=== PATIENT | female | born 1975 | race Caucasian/White ===

== ENCOUNTER 2024-01-12 11:35 | Outpatient (CLI) | payer BC, SELFPAY | END 2024-01-12 11:36 | disposition home or self-care (01) | LOC: NFLDREF 01-13 06:31 | PROVIDERS: PCP Family Medicine; Referring Provider Family Medicine; Visit Provider Nurse Practitioner Family | DX: N39.0 Urinary tract infection, site not specified (principal); B96.20 Unspecified Escherichia coli [E. coli] as the cause of diseases classified elsewhere | CPT/HCPCS: 87086; 87186 ==

== ENCOUNTER 2024-06-26 16:16 | Outpatient (CLI) | payer BC, SELFPAY | END 2024-06-26 16:17 | disposition home or self-care (01) | LOC: NFLDREF 06-29 04:06 | PROVIDERS: PCP Family Medicine; Referring Provider Family Medicine; Visit Provider Physician Assistant | DX: N39.0 Urinary tract infection, site not specified (principal); R31.9 Hematuria, unspecified | CPT/HCPCS: 87086 ==

== ENCOUNTER 2025-02-20 03:48 | Emergency (ER) | payer BC, SELFPAY ==
--- OUTSIDE RECORDS SUMMARY | 2012-01-31 02:30 | XMS_ITS | Continuity of Care Document ---
Author Organization [facility] Address [address] [address] [place] [address] Phone Care Team Providers Care Tooling Supervisor Name Role Phone Ba TABARES, Parmjit Espitia Unavailable Allergies, Adverse Reactions, Alerts Substance Reaction Status Criticality telithromycin Constipation Active No Information Sulfa (Sulfonamide Antibiotics) Hives Active No Information Medications Medication Instructions Dosage Effective Dates (start - stop) Status Comments Carafate 100 mg/mL Oral Susp take 10 milliliter (1G) by oral route every day on an empty stomach 1 hour before a meal 1 G - Active prednisone 5 mg/5 mL Oral Soln take 5 milliliter (5MG) by oral route 4 times every day 5 MG - Active Paxil 40 mg Tab take one tablet po qday. - Active BCP ( Control Pill) unknown Use as directed - Active lisinopril-hydroch lorothiazide 10 mg-12.5 mg Tab Use as directed - No Longer Active SUPER MINERAL Use as directed - No Longer Active Helen-D 12 Hour 60 mg-120 mg Tab Take one tablet by mouth every morning - No Longer Active Xanax 0.25 mg Tab as needed 8 - No Longer Active Vitamin C 250 mg Tab Take 1 tablet by mouth daily - No Longer Active Procedures Procedure Date Ugi Endo; W/bx mx Level Iv-surg Path Gross/micro 12 Advance Directives Directive Yes / No Effective Date File Name Resuscitation Not Answered N/A N/A Life Support Not Answered N/A N/A Intubation Not Answered N/A N/A Antibiotics Not Answered N/A N/A IV Fluid Support Not Answered N/A N/A Tube Feed Not Answered N/A N/A Other Directive N/A N/A WARNING:The information contained in this section is historical and is provided for information only and does not constitute a legal document or any assurance that the information is still accurate. Please verify the information with the marcus of the legal document before using it for clinical purposes. Encounters Encounter Description Practice Location Reason(s) For Visit Diagnoses Date Provider Providers Copied on Encounter [facility], [address] [address], [place], [place], [id number], tel:[phone] [facility] Dysphagia, UnspecifiedD ysphagia, Unspecified [address], [id number], [place]. tel:[phone] Referring Provider: Romaine CHAVIRA, [address] [facility] [place], [address]. tel:[phone] [facility], [address] [address], [place], [place], [id number], tel:[phone] [facility] Rectal Bleed/BRBPR 8 No Information Referring Provider: Romaine CHAVIRA, [address] [place], [address]. tel:[phone] Family History Family Member Type Diagnosis Age At Onset No Information Payers Payer name Insurance type Covered republican ID Taj colon(s) Will [id number] Social History Type Description Quantity Date Captured Comments Alcohol Use Details Unknown Caffeine Use Details Unknown Tobacco Use Status No Information Smoking Status No Information Sex Female Chief Complaint And Reason For Visit No Information Reason For Referral Reason For Referral No Information History Of Present Illness Encounter Date Complaint History Of Prese nt Illness No Information Functional Status Date Functional Assessmen t No Information Instructions Date Instruction Additional Infor mation No Information Assessments Type Assessment Date No Information Patient Care Teams Name Effective Dates (start - stop) Status Members No Information
--- OUTSIDE RECORDS SUMMARY | 2012-01-31 02:30 | XMS_ITS | Continuity of Care Document ---
Author Organization [facility] Address [address] [address] [place] [address] Phone Care Team Providers Care Water Treatment Plant Supervisor Name Role Phone Ba TABARES, Parmjit [...] Diagnoses Date Provider Providers Copied on Encounter [facility], [address] [address], [place], [place], [id number], tel:[phone] [facility] Dysphagia, UnspecifiedD ysphagia, Unspecified [address]. [address], [id number], [place]. tel:[phone] Referring Provider: Romaine CHAVIRA, [address] [facility] [place], [address]. tel:[phone] [facility], [address] [address], [place], [place], [address], tel:[phone] [facility] Rectal Bleed/BRBPR 8 No Information Referring Provider: Romaine CHAVIRA, [address] [place], [address]. tel:[phone] Family History Family Member Type Diagnosis Age At Onset No Information Payers Payer name Insurance type Covered constitution party ID Taj colon(s) Will [id number] Social History Type Description Quantity Date Captured [...]
--- OUTSIDE RECORDS SUMMARY | 2025-02-20 03:50 | XMS_ITS | Clinical Summary ---
Author Organization [facility] Address [address] [place] [address] Care Team Providers Care Radial Drill Operator For Plastic Name Role Phone Unavailable Primary Care Provider Unavailabl e Allergies Active Allergy Reactions Criticality Noted Date Comments Sulfa (Sulfonamide Antibiotics) Hives 07/2008 Medications DULoxetine (Cymbalta) [address] capsule Active lisinopril 20 mg tablet Take 20 mg by mouth in the morning. Active metFORMIN XR (Glucophage-XR) 500 mg 24 hr tablet TAKE 2 TABS BY MOUTH ONCE DAILY WITH EVENING MEAL Active metoprolol succinate XL (Toprol-XL) 50 mg 24 hr tablet Take 25 mg by mouth in the morning and 25 mg in the evening. 02/26/2024 Active Wegovy 1.7 mg/0.75 mL pen injector Inject 1.7 mg under the skin once a week. 03/19/2024 Active Active Problems Problem Noted Date Diagnosed Date Anxiety 04/25/2024 Class 3 severe obesity due t o excess calories without serious comorbidity with body mass index (BMI) of 45.0 to 49.9 in adult 12/27/2023 Paroxysmal SVT (supraventricular tachycardia) PVC (premature ventricular contraction) 12/27/19 NSVT (nonsustained ventricular tachycardia) 05/27 Bilateral pulmonary embolism 03/04/2018 Overview (04/25/2024): 11/2017. Immobilization from foot surgery and on an oral contraceptive pill. Recommended avoiding estrogen containing contraceptives. 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
--- OUTSIDE RECORDS SUMMARY | 2025-02-20 03:50 | XMS_ITS | Clinical Summary ---
Author Organization [facility] Address [address] [place] [address] Care Team Providers Care Performance Engineer Name Role Phone Brittany Benitez MD Primary Care Provider [phone] Allergies Active Allergy Reactions Criticality Noted Date Comments Unlisted Allergen (Include Detail In Comments) 04/29/2009 Seasonal allergies Sulfa (Sulfonamide Antibiotics) Hives 07/2008 Medications fluticasone (50 mcg per actuation) nasal solution (FLONASE)Indicat ions:Post-nasal drip,Acute non-recurrent maxillary sinusitis INHALE 2 SPRAYS INTO BOTH NOSTRILS ONCE DAILY. 48 mL 0 Active Cetirizine 10 mg cap Take by mouth. 0 1 Active clindamycin phos 1%-benzoyl perox 5% gelIndications:I nflammatory acne Apply topically to affected area(s) two times daily. 50 g 1 5 Active CPAPIndications: Obstructive sleep apnea RESMED CPAP (E0601) machine for home use at pressure: 5-15cmw, Choice of mask (A7030 or A7034) w/full face cushion (A7031) x1/mo, nasal cushion (A7032) x2/mo, or nasal pillows (A7033) x 2/mo; Length of Need: 99 months; Frequency of use: Daily 1 Each 5 Active semaglutide (weight loss) (Wegovy) 2.4 mg/0.75 mL subcutaneous penIndications:P rediabetes,PCOS (polycystic ovarian syndrome),Class 3 severe obesity due to excess calories without serious comorbidity with body mass index (BMI) of 45.0 to 49.9 in adult (HC),Essential hypertension Inject 2.4 mg subcutaneous once weekly. 9 mL 5 Active metFORMIN (GLUCOPHAGE XR) 500 mg Extended-Release tabletIndication s:Prediabetes,PC OS (polycystic ovarian syndrome) Take 1 Tablet (500 mg) by mouth two times daily with meals. 180 Tablet 1 5 Active lisinopriL (PRINIVIL; ZESTRIL) 10 mg tabletIndication s:Essential hypertension Take 1 Tablet (10 mg) by mouth once daily. 90 Tablet 1 5 Active Active Problems Problem Noted Date Diagnosed Date Endometrial hyperplasia 06/19/2024 Inflammatory acne 06/19/2024 Class 3 severe obesity due t o excess calories with serious comorbidity and body mass index (BMI) of 40.0 to 44.9 in adult 06/19/2024 Supraventricular tachycardia, unspecified 2024 Class 3 severe obesity due t o excess calories without serious comorbidity with body mass index (BMI) of 45.0 to 49.9 in adult 12/27/2023 Palpitations 12/27/2023 PVC (premature ventricular contraction) 12/27/19 Paroxysmal SVT (supraventricular tachycardia) NSVT (nonsustained ventricular tachycardia) 05/27 PCOS (polycystic ovarian syndrome) 03/04/2018 Bilateral pulmonary embolism 03/04/2018 Overview (03/04/2018): 11/2017. Immobilization from foot surgery and on an oral contraceptive pill. Recommended avoiding estrogen containing contraceptives. Prediabetes 10/25/2017 LAUREN 04/23/2007 AHI- 86 pillows standard 10/26/19 18 Morbid exogenous obesity 09/25/2017 Heel spur, right 09/25/2017 Essential hypertension 08/18/2013 Anxiety Resolved Problems Problem Noted Date Diagnosed Date Resolved Date Prediabetes 03/12/2016 Encounters Date Type Department Care Team Description 02/10/2025 9:30 AM CDT Ancillary Procedure [facility] [address] [place] [address] 02/10/2025 8:15 AM CDT Office Visit [facility] [address] [place] [address] Valarie Bashir PA Abdominal Pain (Hx of ovarian cysts; most recently 5 days ago. Gets cloudy urine prior to this and then after bursting gets hematuria. ) 02/10/2025 Travel 02/05/2025 Travel 01/28/2025 4:40 PM CDT Ancillary Procedure [facility] [address] [place] [address] 01/28/2025 Travel 01/23/2025 Travel 12/22/2024 3:40 PM CDT [place] [facility] [place] [address] [place] [address] Josh Novak MD Procedure (endometrial biopsy) 12/22/2024 Travel 12/17/2024 Travel 12/04/2024 8:45 AM CDT Office Visit [facility] [address] [place] [address] Brittany Benitez MD Medication Management 12/04/2024 Travel 11/29/2024 Travel from Last 3 Months Immunizations Immunization Administration Dates Next Due COVID-19 vaccine (Moderna 100mcg/0.5mL) PF, MDV 07/23/2020,06/25/2020 Influenza, IIV3 (Age >=3 years) 03/30/2008 Influenza, IIV4 03/30/2022,02/23/2020 Tdap 06/22/2022,06/30/2012 Family History Medical History Relation Name Comments Alcoholism Father Anxiety disorder Father Asthma Father Depression Father Emphysema Father Smoker Diabetes Mother Borderline Hypertension Mother Obesity Mother Osteoarthritis Mother Cancer-breast No Family History Cancer-colon No Family History Cancer-ovarian No Family History Relation Name Status Comments Father Alive Mother Alive Social History Tobacco Use Types Packs/Day Years Used Date Smoking Tobacco: Never Smokeless Tobacco: Never Tobacco Cessation:Counseling Given: Yes Alcohol Use Standard Drinks/Week Comments No 0 (1 standard drink = 0.6 oz pur e alcohol) PHQ-2 Answer Date Recorded PHQ-2 TOTAL SCORE 0 11/26/2023 Social Connections Answer Date Recorded Do you often feel lonely or isolated from those around you? 0 09/01/2024 Alcohol Use Answer Date Recorded How often do you have a drink containing alcohol ? 0 02/10/2025 How many drinks containing a lcohol do you have on a typical day when you are drinking? 0 02/10/2025 How often do you have five or more drinks on one occasion? 0 02/10/2025 Financial Resource Strain Answer Date R ecorded Difficulty of Paying Living Expenses 3 09/01/2024 Difficulty of Paying Living Expenses Not on file 09/01/2024 Food Insecurity Answer Date Recorded Do you worry your food will run out before you are able to buy more? 1 09/01/2024 Transportation Needs Answer Date Record ed Does lack of transportation keep you from medica l appointments? 1 09/01/2024 Does lack of transportation keep you from work, meetings or getting things that you need? 1 09/01/2024 Housing Stability Answer Date Recorded What is your housing situation today? 1 09/01/2024 Utilities Answer Date Recorded Do you have trouble paying f or utilities (for example, heat, electricity, water, phone)? 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 Not on file Not on file Obstetrics History Para Term AB IAB SAB Ectopic Multiple Livin g Live Births 2 2 1 1 1 2 3 Date Outcome GA Total Labor Labor/2nd/3rd Weight Sex Type Anes PTL Skylar A1 A5 Name Clin 001 29w 5d M C-Sec darlene Verma ll Comments:Twin , b ut twin did not survive Neona licha Demis e 004 Term 39w 0d M C-[employer] darlene Bales Comments Two sons, both doing well Last Filed Vital Signs Vital Sign Reading Time Taken Comments Blood Pressure 126/84 02/10/2025 8:15 AM CDT Pulse 66 02/10/2025 8:15 AM CDT Temperature 36.8 C (98.3 F) 07/23/2023 3:34 PM [employer] Respiratory Rate 16 07/23/2023 3:34 PM [employer] Oxygen Saturation 97% 12/22/2024 3:45 PM CDT Inhaled Oxygen Concentration - - Weight 128 kg (282 lb 3 oz) 02/10/2025 8:15 AM C DT Height 170.5 cm (5' 7.13) 11/19/2024 9:21 AM CD T Body Mass Index 44.03 11/19/2024 9:21 AM CDT Plan of Treatment Upcoming Encounters Date Type Department Care Team (Late st Contact Info) Description 03/09/2025 10:00 AM CDT Office Visit [facility] [address] [place] [address] Brittany Benitez MD [address] [place] [address] 06/22/2025 8:20 AM [employer] Office Visit [facility] [address] [place] [address] Brittany Benitez MD [address] [place] [address] Health Maintenance Due Date Last Done Comments Hepatitis B series for 19+ ( 1 of 3 - 19+ 3-dose series) 12/30/1994 Pneumococcal series for age 6-49 (1 of 2 - PCV) 12/30/1994 Depression screening for age 12+ 11/25/2024 11/26/2023, 06/25/2022, 06/22/2022, Additional history exists COVID-19 vaccine series (2024- season) 2025 03/28/2021, 07/23/2020, 06/25/2020 Influenza Vaccine (#1) 2025 2, 02/23/2020, 03/30/2008 Pap test for age 21-65 08/12/2025 1, 08/12/2020, 08/26/2017, Additional history exists BMI (ht and wt on same day) for age 18+ 11/19/2025 11/19/2024, 06/19/2024, 12/27/2023, Additional history exists Mammogram for age 45-75 01/28/2026 01/29/20 25, 01/29/2024, 01/24/2023, Additional history exists Lipids for age 45-75 06/19/2029 06/19/2024, 06/12/2023, 06/27/2022, Additional history exists Colonoscopy through age 75 11/18/203111/17, 11/17/2021, 11/17/2021 Tetanus booster 06/22/2032 06/22/2022, 03/0 05/2012, 06/30/2012 RSV vaccine for adults or (1 - 1-dose 75+ series) 12/30/2050 HIV for age 15-65 Completed 06/22/2022 Hepatitis C screening for ag e 18-79 Completed 06/22/2022 Procedures Procedure Name Priority Date/Time Associated Diagnosis Comments CT ABDOMEN PELVIS STONE PROTOCOL WO STAT 02/10/2025 9:13 AM CDT Gross hematuria Right flank pain URINALYSIS MICROSCOPIC Routine 02/10/2025 8:41 AM CDT Personal history of kidney stones Gross hematuria Right flank pain URINALYSIS MACROSCOPIC - [facility] ONLY POC DIP ([facility]) Routine 02/10/2025 8:41 AM CDT Personal history of kidney stones Gross hematuria Right flank pain XR MAMMO BILAT SCREENING Routine 01/28/2025 4:54 PM CDT Visit for screening mammogram PATH TISSUE EXAM Routine 12/22/2024 4:42 PM CDT PCOS (polycystic ovarian syndrome) BASIC METABOLIC PANEL Routine 12/04/2024 9:41 AM CDT Class 3 severe obesity due to excess calories with serious comorbidity and body mass index (BMI) of 40.0 to 44.9 in adult (HC) PCOS (polycystic ovarian syndrome) PVC (premature ventricular contraction) VITAMIN B12 Routine 12/04/2024 9:41 AM CDT PCOS (polycystic ovarian syndrome) PVC (premature ventricular contraction) URINALYSIS MACROSCOPIC - [facility] ONLY POC DIP ([facility]) Routine 12/04/2024 9:40 AM CDT Dysuria URINALYSIS MICROSCOPIC Routine 12/04/2024 9:37 AM CDT Dysuria URINE CULTURE Routine 12/04/2024 9:37 AM CDT Dysuria LIPID PANEL W REFLEX MEASURED LDL Routine 06/19/2024 8:37 AM [employer] Lipid screening LC HIV-1/O/2, 4TH GENERATION Routine 06/22/2022 10:25 AM [employer] Screening for HIV (human immunodeficiency virus) LC HCV ANTIBODY RFX TO QUANT PCR Routine 06/22/2022 10:25 AM [employer] Need for hepatitis C screening test COLONOSCOPY SCREENING Routine 11/17/2021 9:43 AM CDT Screening for colon cancer CLAIM INVESTIGATOR THIN PREP PAP SCREEN IMAGED Routine 08/12/2020 8:52 AM CDT Screening for cervical cancer from Last 3 Months or Most Recently Relevant to Health Maintenance Results * CT ABDOMEN PELVIS STONE PROTOCOL WO (02/10/2025 9:13 AM CDT) Anatomical Region Laterality Modality Abdomen, Pelvis, AORTA, LIVER, SPLEEN Computed Tomography 02/10/2025 9:32 AM CDT Impressions 02/10/2025 9:32 AM CDT 1. Intrarenal calculi on the right. Faint suggestion of a tiny calculus at the right ureteropelvic junction in the 1-2 millimeter range. No other potential visible cause for right flank pain or hematuria on this exam. 2. Probably benign rim calcified left renal mass stable since 2019. 3. Left adrenal nodule, likely a lipid rich benign adenoma. 4. Other incidental nonacute findings as above. Please review the comments. Please note that all CT scans at this facility use dose modulation, iterative reconstruction, and/or weight-based dosing when appropriate to reduce radiation dose to as low as reasonably achievable. Dictated by Ben Rios MD @ 02/10/2025 9:32:04 AM (Electronically Signed) Narrative 02/10/2025 9:32 AM CDT For Patients: As a result of the Cures Act, medical imaging exams and procedure reports are released immediately into your electronic medical record. You may view this report before your referring provider. If you have questions, please contact your health care provider. INDICATION: Gross hematuria. Right flank pain. Kidney stones suspected COMPARISON: December 30, 2019 TECHNIQUE: CT examination of the abdomen and pelvis was performed without intravenous contrast. Thin section axial images were obtained from the lung bases through the pubic symphysis. Oral contrast was not administered. Please note that all CT scans at this facility use dose modulation, iterative reconstruction, and/or weight-based dosing when appropriate to reduce radiation dose to as low as reasonably achievable. FINDINGS: LUNG BASES: Linear opacities consistent with atelectasis or scarring.Small hiatal hernia. The heart size is normal the lung bases. LIVER/BILIARY SYSTEM:The liver is normal in size and configuration given the lack of intravenous contrast. There is no visible focal mass and there is no intra- or extra hepatic biliary ductal dilatation.There has been a cholecystectomy ADRENALS: Normal right adrenal gland. Low-density left adrenal nodule measuring 1.7 centimeters consistent with a benign adenoma KIDNEYS, URETERS and BLADDER:The left kidney shows a rim calcified left upper pole lesion measuring 2.5 centimeters in diameter. This is unchanged since 2020 and therefore benign. No definite obstructive uropathy on the left. There are calculi in the right renal pelvis. There is a faint suggestion of a tiny stone at the right ureteropelvic junction measuring about 1-2 millimeters. This is most convincingly seen on coronal image 97 and axial image number 123 no distal calculi or calculi within the bladder. SPLEEN:Normal non-contrast appearance. PANCREAS: Normal non-contrast appearance. RETROPERITONEUM and MESENTERY: There is no mass, adenopathy or aortic aneurysm. GASTROINTESTINAL SYSTEM: There is no evidence of diverticulitis, colitis, mechanical obstruction, or appendicitis. The small bowel as visualized appears normal.Diverticulosis PELVIS: No mass, adenopathy or free fluid. OSSEOUS STRUCTURES and ABDOMINAL WALL: There is an age-appropriate appearance of the osseous structures.No significant abdominal wall defect. OTHER: No free fluid or free air. Procedure Note Ben Rios MD - 02/10/2025 For Patients: As a result of the Century Cures Act, medical imagingexams and procedure reports are released immediately into your electronicmedical record. You may view this report before your referring provider.If you have questions, please contact your health care provider. INDICATION: Gross hematuria. Right flank pain. Kidney stones suspected COMPARISON: December 30, 2019 TECHNIQUE: CT examination of the abdomen and pelvis was performed without intravenouscontrast. Thin section axial images were obtained from the lung basesthrough the pubic symphysis. Oral contrast was not administered. Please note that all CT scans at this facility use dose modulation,iterative reconstruction, and/or weight-based dosing when appropriate toreduce radiation dose to as low as reasonably achievable. FINDINGS: LUNG BASES: Linear opacities consistent with atelectasis or scarring.Smallhiatal hernia. The heart size is normal the lung bases. LIVER/BILIARY SYSTEM:The liver is normal in size and configuration giventhe lack of intravenous contrast. There is no visible focal mass and thereis no intra- or extra hepatic biliary ductal dilatation.There has been acholecystectomy ADRENALS: Normal right adrenal gland. Low-density left adrenal nodulemeasuring 1.7 centimeters consistent with a benign adenoma KIDNEYS, URETERS and BLADDER:The left kidney shows a rim calcified leftupper pole lesion measuring 2.5 centimeters in diameter. This is unchangedsin2019 and therefore benign. No definite obstructive uropathy on theleft. There are calculi in the right renal pelvis. There is a faintsuggestion of a tiny stone at the right ureteropelvic junction measuringabout 1-2 millimeters. This is most convincingly seen on coronal image 97and axial image number 123 no distal calculi or calculi within thebladder. SPLEEN:Normal non-contrast appearance. PANCREAS: Normal non-contrast appearance. RETROPERITONEUM and MESENTERY: There is no mass, adenopathy or aorticaneurysm. GASTROINTESTINAL SYSTEM: There is no evidence of diverticulitis, colitis,mechanical obstruction, or appendicitis. The small bowel as visualizedappears normal.Diverticulosis PELVIS: No mass, adenopathy or free fluid. OSSEOUS STRUCTURES and ABDOMINAL WALL: There is an age-appropriateappearance of the osseous structures.No significant abdominal walldefect. OTHER: No free fluid or free air. IMPRESSION: 1. Intrarenal calculi on the right. Faint suggestion of a tiny calculus atthe right ureteropelvic junction in the 1-2 millimeter range. No otherpotential visible cause for right flank pain or hematuria on this exam. 2. Probably benign rim calcified left renal mass stable since 2019. 3. Left adrenal nodule, likely a lipid rich benign adenoma. 4. Other incidental nonacute findings as above. Please review thecomments. Please note that all CT scans at this facility use dose modulation,iterative reconstruction, and/or weight-based dosing when appropriate toreduce radiation dose to as low as reasonably achievable. Dictated by Ben Rios MD @ 02/10/2025 9:32:04 AM (Electronically Signed) us Valarie [place] CT Final Res ult * (ABNORMAL) POCT Urinalysis Dipstick Only [[id number]] (02/10/2025 8:41 AM CDT) Only the most recent of2 resultswithin the time period is included. SPECIFIC GRAVITY 1.025 1.001 - 1.035 02/10/2025 8:48 AM CDT [facility] PROTEIN NEGATIVE NEGATIVE 02/10/2025 8:48 AM CDT [facility] GLUCOSE NEGATIVE NEGATIVE 02/10/2025 8:48 AM CDT [facility] KETONES NEGATIVE NEGATIVE 02/10/2025 8:48 AM CDT [facility] BILIRUBIN NEGATIVE NEGATIVE 02/10/2025 8:48 AM CDT [facility] OCCULT BLOOD 2+(A) NEGATIVE 02/10/2025 8:48 AM CDT [facility] NITRITE NEGATIVE NEGATIVE 02/10/2025 8:48 AM CDT [facility] PH 7.0 5.0 - 8.0 02/10/2025 8:48 AM CDT [facility] LEUKOCYTE ESTERASE NEGATIVE NEGATIVE 02/10/2025 8:48 AM CDT [facility] Urine URINE SPECIMEN / Unknown Non-Blood / Unknown 02/10/2025 8:41 AM CDT 02/10/2025 8:41 AM CDT Valarie Bashir PA URINE Final Res ult [facility] [address] [place] [address], [place] [phone] [address], [place] [phone] * (ABNORMAL) URINALYSIS MICROSCOPIC [14288.1] - routine (02/10/2025 8:41 AM CDT) Only the most recent of2 resultswithin the time period is included. RBC 11-25(A) 0-2, None Seen /HPF 02/10/2025 4:42 PM CDT [facility] WBC 6-10(A) 0-2, 3-5, None Seen /HPF 02/10/2025 4:42 PM CDT [facility] BACTERIA Moderate(A ) None Seen, Rare, Few Bacteria/ HPF 02/10/2025 4:42 PM CDT [facility] EPITHELIAL CELLS Many(A) None Seen, Few Epi/HPF 02/10/2025 4:42 PM CDT [facility] HYALINE CASTS 0-2 0-2, 3-5 /LPF 02/10/2025 4:42 PM CDT [facility] Urine URINE SPECIMEN / Unknown Non-Blood / Unknown 02/10/2025 8:41 AM CDT 02/10/2025 8:41 AM CDT Valarie Bashir PA URINE Final Res ult [facility] [address] [place] [address], [place] * XR MAMMO BILAT SCREENING (01/28/2025 4:54 PM CDT) Anatomical Region Laterality Modality BREASTS, Breast Left, Breast Right Bilateral Mammography Impressions 01/29/2025 2:17 PM CDT There is no radiographic evidence for malignancy. Recommend annual mammograms. MAMMOGRAM ASSESSMENT: ACR 1 Negative PATIENTS: You will also receive a letter with your examination results in an easy to read format. If you have questions about your results, please contact your referring provider. Narrative 01/29/2025 2:17 PM CDT For Patients: As a result of the Century Cures Act, medical imaging exams and procedure reports are released immediately into your electronic medical record. You may view this report before your referring provider. If you have questions, please contact your health care provider. XR MAMMO BILAT SCREENING [[id number]] CLINICAL HISTORY: This is an asymptomatic 49 y.o. patient. INDICATION FOR EXAM: Mammogram Screening. TECHNIQUE: CC and MLO views were obtained. This study was evaluated with the assistance of Computer-Aided Detection. COMPARISON FILM: Yes [facility] FINDINGS: The breasts are almost entirely fatty. There are no dominant masses, suspicious micro calcifications or areas of architectural distortion. Brittany Benitez MD MAMMO Final Resul t * PATH TISSUE EXAM (12/22/2024 4:42 PM CDT) Case Report Pathology Report Case: [id number] Authorizing Provider: Josh Novak MD Collected: 12/22/2024 1642 Ordering Location: [facility] Received: 12/22/2024 1642 Clinic Pathologist: Elida Granados MD Specimen: Endometrial Biopsy 12/25/2024 12:19 PM CDT [facility] Final Diagnosis A) ENDOMETRIUM, BIOPSY: 1. Secretory endometrium 2. Negative for chronic endometritis 3. Negative for hyperplasia, atypia, and malignancy 12/25/2024 12:19 PM CDT [facility] at 1219 CDT Clinical Information Endometrial biopsies for surveillance due to increased risk (obesity, PCOS, thickened endometrial lining on imaging). Does not tolerate hormonal suppression. 12/25/2024 12:19 PM CDT [facility] Gross Description A) Received in formalin, labeled with the patient's name and date of , is a 2 x 1.2 x 0.2 cm aggregate of davenport/pink mucosa. The specimen is entirely submitted in 1 cassette. [facility] 12/24/2024 12/25/2024 12:19 PM CDT [facility] Microscopic Description The final diagnosis is based on microscopic examination of appropriate sections of all specimens. 12/25/2024 12:19 PM CDT [facility] Additional Information Interpreted at [facility] - [address] [place] [address] 12/25/2024 12:19 PM CDT [facility] Other (Endometrial Biopsy) Non-Blood / Unknown 12/22/2024 4:42 PM CDT 12/22/2024 4:42 PM CDT us Josh Novak MD PATHOLOGY/CYTOLOGY Final Resul t [facility] [address] [place] [address], * VITAMIN B12 (12/04/2024 9:41 AM CDT) VITAMIN B12 439 200 - 1,100 pg/mL [facility] Blood BLOOD SPECIMEN / Unknown 12/04/2024 9:41 AM CDT 12/04/2024 9:41 AM CDT us Brittany Benitez MD CHEMISTRY Final Resul t [employer] [facility] [address] [place] [address], [place] [phone] [facility] [address] [place] [address] * BASIC METABOLIC PANEL (12/04/2024 9:41 AM CDT) GLUCOSE 87 65 - 99 mg/dL [facility] Comment: Fasting reference interval UREA NITROGEN (BUN) 18 7 - 25 mg/dL [facility] CREATININE 0.79 0.50 - 0.99 mg/dL [facility] EGFR 92 > OR = 60 mL/min/1. 73m2 [facility] BUN/CREATININE RATIO SEE NOTE: 6 - 22 (calc) [facility] Comment: Not Reported: BUN and Creatinine are within reference range. SODIUM 137 135 - 146 mmol/L [facility] POTASSIUM 4.8 3.5 - 5.3 mmol/L [facility] CHLORIDE 104 98 - 110 mmol/L [facility] CARBON DIOXIDE 26 20 - 32 mmol/L [facility] ELECTROLYTE BALANCE 7 7 - 17 mmol/L (calc) [facility] CALCIUM 9.1 8.6 - 10.2 mg/dL [facility] Blood BLOOD SPECIMEN / Unknown 12/04/2024 9:41 AM CDT 12/04/2024 9:41 AM CDT Brittany Benitez MD CHEMISTRY Final Resul t [employer] [place] [id number] [place] [address], [facility] [address] [place] [address] * URINE CULTURE [16608.2] (12/04/2024 9:37 AM CDT) CULTURE <10,000 CFU/mL multiple organisms 12/05/2024 5:16 PM CDT [facility] Urine URINE SPECIMEN / Unknown Non-Blood / Unknown 12/04/2024 9:37 AM CDT 12/04/2024 9:37 AM CDT us Brittany Benitez MD MICROBIOLOGY Final Resul t [facility] [address] [place], [place] [id number], * (ABNORMAL) LIPID PANEL W REFLEX MEASURED LDL (06/19/2024 8:37 AM CONTR[employer]RE) CHOLESTEROL, TOTAL 191 <200 mg/dL [facility] HDL CHOLESTEROL 40(L) > OR = 50 mg/dL [facility] TRIGLYCERIDES 213(H) <150 mg/dL [facility] Comment: If a non-fasting specimen was collected, consider repeat triglyceride testing on a fasting specimen if clinically indicated. Filomena et al. J. of Clin. Lipidol. 2015;9:129-169. LDL-CHOLESTEROL 118(H) mg/dL (calc) [facility] Comment: Reference range: <100 Desirable range <100 mg/dL for primary prevention; <70 mg/dL for patients with CHD or diabetic patients with > or = 2 CHD risk factors. LDL-C is now calculated using the Jordi-Jean-Baptiste calculation, which is a validated novel method providing better accuracy than the Friedewald equation in the estimation of LDL-C. Jordi SS et al. KIMMIE. 2013;310(19): 6790-5819 (http://education.Re[employer]idal/faq/TYF045) CHOL/HDLC RATIO 4.8 <5.0 (calc) [facility] NON HDL CHOLESTEROL 151(H) <130 mg/dL (calc) [facility] Comment: For patients with diabetes plus 1 major ASCVD risk factor, treating to a non-HDL-C goal of <100 mg/dL (LDL-C of <70 mg/dL) is considered a therapeutic option. Blood BLOOD SPECIMEN / Unknown 06/19/2024 8:37 AM [employer] 06/19/2024 8:38 AM [employer] us Brittany Benitez MD CHEMISTRY Final Resul t [facility] [employer] [address] [place] [address], [facility] [address] [place] [address] * LC HCV ANTIBODY RFX TO QUANT PCR (06/22/2022 10:25 AM [employer]) [facility] HCV Ab <0.1 0.0 - 0.9 s/co ratio 06/26/2022 10:06 PM CONTROLLER CO[employer] OR ORE [facility] ([facility]) Blood BLOOD SPECIMEN / Unknown Venipuncture / Unknown 06/22/2022 10:25 AM [employer] 06/22/2022 10:30 AM [employer] Narrative [facility] ([facility]) - 06/26/2022 10:06 PM [employer] Performed at: [address] [place] [id number] Relations Manager: Taco Hood MD, Phone: [phone] us Brittany Benitez MD LABORATORY Final Resul t [facility] ([facility]) [address] [place] [id number], * LC HIV-1/O/2, 4TH GENERATION (06/22/2022 10:25 AM [employer] O[employer]) [facility] HIV Scr 4th Gen Non Reactive Non Reactive 06/26/2022 10:[address] [facility] ([facility]) Comment: HIV Negative HIV-1/HIV-2 antibodies and HIV-1 p24 antigen were NOT detected. There is no laboratory evidence of HIV infection. Blood BLOOD SPECIMEN / Unknown Venipuncture / Unknown 06/22/2022 10:25 AM [employer] 06/22/2022 10:30 AM [employer] Narrative [facility] ([facility]) - 06/26/2022 10:06 PM [employer] Performed at: [address] [place] [address] [id number] Relations Manager: Taco Hood MD, Phone: [phone] us Brittany Benitez MD LABORATORY Final Resul t [facility] ([facility]) [address] [place] [address], * COLONOSCOPY (11/17/2021 9:57 AM CDT) 11/17/2021 9:57 AM CDT Narrative Transcriptions Jordi Leger MD - 11/17/2021 10:55 AM CDT Patient Name: Lisa Kate Procedure Date: 11/17/2021 Gender: Female Date of : 1975 Admit Type: Outpatient Procedure: Colonoscopy Proceduralist: Jordi Leger MD , Amira Fortune, RN (Nurse) Referring MD: Brittany Benitez Indications/Pre-Op Diagnosis: Screening for colorectal malignant neoplasm, This is the patient's first colonoscopy Medications: Fentanyl 100 micrograms IV, Midazolam 3 mgIV, The level of sedation administered wasmoderate Procedure Description: The patient had risks, benefits and alternatives explained to andgave informed consent. The patient had a stable cardiopulmonary status and judged an adequate candidate for conscious sedation. The Colonoscope was passed through the anus and advanced to thececum, identified by appendiceal orifice and ileocecal valve. Thecolonoscopy was performed without difficulty. The patient tolerated the procedure well. The quality of the bowel preparation was good. The ileocecal valve, appendiceal orifice, and rectum were photographed. Complications: No immediate complications. Estimated Blood Loss & Specimen: Estimated blood loss: none. Specimen collected - None Findings: The perianal and digital rectal examinations were normal. The entire examined colon appeared normal. Impressions/Post-Op Diagnosis: - The entire examined colon is normal. - No specimens collected. Recommendation: - Patient has a contact number available for emergencies. The signsand symptoms of potential delayed complications were discussed with the patient. Return to normal activities tomorrow. Written discharge instructions were provided to the patient. - Resume previous diet. - Continue present medications. - Repeat colonoscopy in 10 years for screening purposes. Moderate Sedation: Moderate (conscious) sedation was administered by the endoscopy nurse and supervised by the endoscopist. The following parameters were monitored: oxygen saturation, heart rate, respiratory rate, blood pressure, adequacy of pulmonary ventilation and reponse to care. Please refer to the patient's medical record flowsheets and nursing notes for moderate sedation details. Total physician intraservice time was 20 minutes. Jordi Leger MD 11/17/2021 10:55:44 AM This report has been signed electronically. Note Initiated On: 11/17/2021 9:57 AM Procedure Code(s): --- Professional --- 29303, Colonoscopy, flexible; diagnostic, including collection of specimen(s) bybrushing or washing, when performed (separateprocedure) Diagnosis Code(s): --- Professional --- Z12.11, Encounter for screening formalignant neoplasm of colon CPT copyright 2020 [employer]. All rights reserved. The codes documented in this report are preliminary and upon ordering machine operator reviewmay be revised to meet current compliance requirements. Scope In: 10:32:49 AM Scope Withdrawal Time 0 hours 8 minutes 0 seconds Scope Out: 10:49:02 AM us Jordi Leger MD PROCEDURE ORD Final Res ult * CLAIM INVESTIGATOR THIN PREP PAP SCREEN IMAGED [[id number]] (08/12/2020 8:52 AM CDT) Case Report Gynecologic Cytology Report Case: [id number] Authorizing Provider: Brittany Benitez MD Collected: 08/12/2020 0852 Ordering Location: [facility] Received: 08/12/2020 0911 Clinic First Screen: Soy Dickson Rescreen: Roshni Ramirez Specimen: CLAIM INVESTIGATOR ThinPrep Vial Screening, Cervical 08/24/2020 11:36 AM CDT [facility] INTERPRETATION/ RESULT NEGATIVE FOR INTRAEPITHELIAL LESION OR MALIGNANCY (NIL) (none) 08/24/2020 11:36 AM CDT [facility] at 1136 CDT ORGANISM(S) Shift in johnathon suggestive of bacterial vaginosis 08/24/2020 11:36 AM CDT [facility] SPECIMEN ADEQUACY Satisfactory for evaluation Endocervical component present 08/24/2020 11:36 AM CDT [facility] HPV REQUEST HPV and PAP 08/24/2020 11:36 AM CDT [facility] Date of LMP 08/08/2020 08/24/2020 11:36 AM CDT [facility] Last Pap Date 08/26/17 08/24/2020 11:36 AM CDT [facility] Last Pap Result NIL 11:36 AM CDT [facility] Abnormal Pap or Palisade Bx in last 5 years No 08/24/2020 11:36 AM CDT [facility] Menstrual Status Abnormal bleeding 08/24/2020 11:36 AM CDT [facility] Palisade Bx Done Today No 08/24/2020 11:36 AM CDT [facility] Additional Information None given 08/24/2020 11:36 AM CDT [facility] Comment: Cytology is screened at [facility], Central Laboratory - [address], [place] [address] and [facility] - [address], [place] [address] and [facility] - [address] [place] [address] Interpreted at [facility] - [address], [place] [address] Automated Review Successful 08/24/2020 11:36 AM CDT [facility] Comment:Specimen processed s uccessfully by automated supervisor road administrator device, ThinPrep Imaging System, [employer] ANCILLARY TESTING CLAIM INVESTIGATOR HPV Ordered, Please see separate report 08/24/2020 11:36 AM CDT [facility] Note The pap test is a screening technique, not a diagnostic procedure. It is used primarily to screen for squamous cancers and precursor lesions. Published studies have shown that it is subject to both false negative and false positive results. The pap test should not be used as the sole means to diagnose or exclude pre-malignant and malignant lesions. 08/24/2020 11:36 AM CDT [facility] Other (Cervical) Non-Blood / Unknown 08/12/2020 8:52 AM CDT 08/12/2020 9:11 AM CDT us Brittany Benitez MD PATHOLOGY/CYTOLOGY Final Re sult [facility] [address] [place] [address], [place] from Last 3 Months or Most Recently Relevant to Health Maintenance Insurance [employer] Care Teams Performance Engineer Relationship Specialty Start Date End Date Brittany Benitez MD [address] [place] [address] PCP - General 02/15/21
[2025-02-20 04:10] VITALS: BP 144/84; PULSE 76; RESP 20; TEMP 36.2; O2SAT 98; BMI 42.9
--- NOTE | 2025-02-20 04:47 | ED.FEMALEGU ---
HPI - Female Genitourinary General Time Seen by Provider: 04:47 Date Seen: 02/20/25 Chief complaint: Urogenital Problems, Female Stated complaint: kidney stone Time Seen by Provider: 02/20/25 04:47 Source: patient Mode of arrival: ambulatory History of Present Illness HPI Narrative: Lisa is a 49-year-old female who presents the emergency department for evaluation of kidney stone. Patient complains of right-sided kidney stone that was diagnosed on CT scan approximately 1 and half weeks ago. Patient states that this morning around 1:30 a.m. she developed severe pain in her right flank, right side, going down into her right lower abdomen/groin region. Patient describes the pain as a constant sharp pain worse she was unable to get comfortable 4. Patient reports pain was associated with nausea but denies any fever, chills, vomiting. Patient took ibuprofen around 1:30 a.m.. Patient denies any dysuria, hematuria, no other complaints. Per chart review patient was seen on 02/10/2025. At that time she did have a CT scan which demonstrates an intrarenal calculi on the right, tiny calculus at the right UPJ 1-2 mm range. Related Data Home Medications ?Medication ?Instructions ?Recorded ?Confirmed clindamycin 1 %-benzoyl peroxide 5 1 applic topical QAM 01/12/24 02/20/25 % topical gel metformin 500 mg tablet,extended 500 mg PO BID 01/12/24 02/20/25 release 24 hr duloxetine 20 mg capsule,delayed 60 mg PO DAILY 06/26/24 02/20/25 release lisinopril 10 mg tablet mg PO DAILY 06/26/24 06/26/24 semaglutide (weight loss) 1.7 2.4 mg subcut 06/26/24 06/26/24 mg/0.75 mL subcutaneous pen injector (Wegovy) lorazepam 0.5 mg tablet 0.5 mg PO DAILY PRN 02/20/25 02/20/25 Previous Rx's ?Medication ?Instructions ?Recorded cephalexin 500 mg capsule 500 mg PO TID #21 caps 06/26/24 ondansetron 4 mg disintegrating 4 mg PO Q8H PRN nausea and 02/20/25 tablet vomiting #14 tabs Allergies Allergy/AdvReac Type Severity Reaction Status Date / Time Sulfa (Sulfonamide Allergy Intermediate Hives Verified 02/20/25 04:25 Antibiotics) Review of Systems Narrative: Past medical history, past surgical history, medications, allergies, family history, and social history were reviewed with the patient. No additional pertinent items. A medically appropriate review of systems was performed with pertinent positives and negatives noted in HPI, all other systems negative. PFSH PFS Social History Smoking Status: Never smoker Do you use any of these nicotine containing products: None How often do you have a drink containing alcohol: never How often do you have six or more drinks on one occasion: Never AUDIT-C Alcohol total score: 0 Non-prescribed substance use: denies use service: No Exam Narrative: Exam Narrative: General: Afebrile, in distress secondary to pain HEENT: Normocephalic, atraumatic, conjunctiva normal. MMM Neck: non-tender, supple Cardio: regular rate. regular rhythm Resp: Normal work of breathing, no respiratory distress, lungs clear bilaterally, no wheezing, rhonchi, rales Chest/Back: no visual signs of trauma, no midline tenderness,+ right CVA tenderness Abdomen: soft, non distension, no tenderness, no peritoneal signs Neuro: alert and fully oriented. CN II-XII grossly intact. Grossly normal strength and sensation in all extremities. MSK: no deformities. Normal range of motion Integumentary/Skin: no rash visualized, normal color Psych: normal affect, normal behavior Const: Vital Signs, click to edit/add: Vital Signs - 24 hr 02/20/25 04:10 02/20/25 07:02 Temperature 97.1 F L 99 F Pulse Rate [Right Pulse Oximeter] 76 74 Respiratory Rate 20 16 Blood Pressure [Ri ght Upper Arm] 144/84 H 124/76 Pulse Oximetry 98 98 Oxygen Delivery Me thod Room Air Room Air Course Vital Signs Vital signs: Initial Vital Signs Temperature 97.1 F L 02/20/25 04:10 Temperature Source Temporal Artery Scan 02/20/25 04:10 Pulse Rate 76 02/20/25 04:10 Pulse Rhythm Regular 02/20/25 04:10 Respiratory Rate 20 02/20/25 04:10 Blood Pressure 144/84 H 02/20/25 04:10 Blood Pressure Mean 104 02/20/25 04:10 Blood Pressure Position Sitting 02/20/25 04:10 Pulse Oximetry 98 02/20/25 04:10 Oxygen Delivery Method Room Air 02/20/25 04:10 Vital Signs Temperature 97.1 F L 02/20/25 04:10 Pulse Rate 76 02/20/25 04:10 Respiratory Rate 20 02/20/25 04:10 Blood Pressure 144/84 H 02/20/25 04:10 Pulse Oximetry 98 02/20/25 04:10 Oxygen Delivery Method Room Air 02/20/25 04:10 Temperature 99 F 02/20/25 07:02 Pulse Rate 74 02/20/25 07:02 Respiratory Rate 16 02/20/25 07:02 Blood Pressure 124/76 02/20/25 07:02 Pulse Oximetry 98 02/20/25 07:02 Oxygen Delivery Method Room Air 02/20/25 07:02 Medications Administered Medications: Discontinued Medications Generic Name Dose Route Start Last Admin Trade Name Mauq PRN Reason Stop Dose Admin Acetaminophen 1,000 mg 02/20/25 05:22 02/20/25 05:25 Acetaminophen 500 Mg Tablet PO 02/20/25 05:23 1,000 mg ONCE ONE Administration Ondansetron HCl 4 mg 02/20/25 05:22 02/20/25 05:25 Ondansetron 2 Mg/Ml Inj IVP 02/20/25 05:23 4 mg ONCE ONE Administration MDM - Female Genitourinary MDM Narrative Medical decision making narrative: Lisa is a 49-year-old female who presents the emergency department for evaluation of kidney stone. Upon arrival patient is nontoxic appearing, afebrile, in distress secondary to pain. Patient hemodynamically stable, slightly hypertensive but otherwise vital signs within normal limits. Given patient's recent CT imaging, known kidney stones now with worsening right flank pain, suspect likely nephrolithiasis/ureterolithiasis. At this time patient does report some improved worse pain. Patient was treated with Tylenol, Zofran, currently declined anything stronger for pain. Comprehensive labs unremarkable with no leukocytosis, no acute metabolic electrolyte abnormalities, urinalysis with blood, 50-100 red blood cells, no evidence of acute infection. I reviewed patient's recent outpatient imaging on 02/10/2025. I discussed results with patient at this time considered repeat CT imaging however patient's symptoms are improved, patient is feeling better, no evidence of infection, normal kidney function. At this time with shared decision making the decision was made to hold off on imaging at this time and will treat with supportive care pain management. Patient feels comfortable discharge with continued supportive care, Zofran, Tylenol, ibuprofen, close outpatient follow-up. Strict return precautions discussed. Patient understands and agrees to the plan. Medical Records Attestation: I reviewed the patient's medical records. Lab Data Attestation: I reviewed the patient's lab results. Labs: Lab Results 02/20/25 02/20/25 Range/Units 00:43 06:25 WBC 7.87 (4.50-11.00) K/uL RBC 4.80 (4.00-5.20) m/uL Hgb 13.7 (12.0-16.0) gm/dL Hct 42.4 (33.0-51.0) % MCV 88 (80-100) fL MCH 29 (26-34) pg MCHC 32 (32-36) gm/dL RDW Coeff of Blanca 13.2 (11.5-15.5) % Plt Count 317 (140-440) K/uL Neut % (Auto) 67.6 (42.0-72.0) % Lymph % (Auto) 21.0 (20-44) % Sherman % (Auto) 7.5 (0.0-11.0) % Eos % (Auto) 3.4 (0.0-7.0) % Baso % (Auto) 0.4 (0.0-3.0) % Neut # (Auto) 5.32 (1.7-7.0) K/uL Lymph # (Auto) 1.65 (0.90-2.90) K/uL Sherman # (Auto) 0.60 (0.00-0.90) K/UL Eos # (Auto) 0.27 (0.00-0.50) K/uL Baso # (Auto) 0.03 (0.00-0.30) K/uL Abs Immat Gran (auto) 0.01 (0.00-0.30) K/uL Imm/Tot Granulo (auto) 0.1 % Sodium 140 (135-149) mmol/L Potassium 4.2 (3.6-5.1) mmol/L Chloride 104 (96-114) mmol/L Carbon Dioxide 28 (20-32) mmol/L Anion Gap 8 (7-15) mEq/L BUN 24 (5-24) mg/dL Creatinine 1.1 (0.5-1.5) mg/dL Estimated Creat Clear 60.16 Estimated GFR 62 ml/min Glucose 116 H (60-115) mg/dL Calcium 9.6 (8.4-10.6) mg/dL Total Bilirubin 0.5 (0.1-1.5) mg/dL AST 29 (12-35) U/L ALT 21 (4-35) U/L Alkaline Phosphatase 73 (40-150) U/L Total Protein 7.5 (6.0-8.3) g/dL Albumin 4.2 (3.3-5.0) g/dL Urine Color Dark yellow (Yellow) Urine Appearance Slightly Cloudy A (Clear) Urine pH 5.5 (5.0-8.5) Ur Specific [place] >= 1.030 (1.000-1.030) Urine Protein Trace A (Negative) Urine Glucose (UA) Negative (Negative) Urine Ketones Negative (Negative) Urine Blood 3+ A (Negative) Urine Nitrite Negative (Negative) Urine Bilirubin Negative (Negative) Urine Urobilinogen 0.2 (0.2-1.0) Ur Leukocyte Esterase Negative (Negative) Urine RBC 50-100 A (0-2) Urine WBC 2-5 (0-5) Ur Squamous Epith Cells Few (None-Few) Urine Bacteria Few A (None) Discharge Plan Discharge Clinical Impression: Flank pain, Kidney stone Patient Disposition: Home, Self-Care Condition: Stable Instructions: Kidney Stones (ED) Additional Instructions: Please follow-up with your primary care provider in the next 5-7 days for further evaluation and follow-up. Please call to schedule appointment. Please rest, drink plenty of fluids. Please alternate taking Tylenol 1000 mg and ibuprofen 600 mg every 6 hours as needed for pain. Please take Zofran as needed for nausea. Please return to the emergency department if you develop high fever, severe pain, persistent vomiting, worsening symptoms. It was a pleasure taking care of you today. We hope you feel better soon. Prescriptions: New ondansetron 4 mg tablet,disintegrating 4 mg PO Q8H PRN (Reason: nausea and vomiting) Qty: 14 0RF No Action metformin 500 mg tablet extended release 24 hr 500 mg PO BID clindamycin-benzoyl peroxide 1-5 % gel 1 applic topical QAM lisinopril 10 mg tablet PO DAILY duloxetine 20 mg capsule,delayed release(DR/EC) 60 mg PO DAILY Wegovy 1.7 mg/0.75 mL pen injector 2.4 mg subcut cephalexin 500 mg capsule 500 mg PO TID Qty: 21 0RF lorazepam 0.5 mg tablet 0.5 mg PO DAILY PRN Follow Up/Referrals: Brittany Benitez MD [Primary Care Provider, Family Practice] Stand Alone Forms: [employer]formerly [employer]th Info Instructions
[2025-02-20 04:49] LABS: Hematocrit* 42.4 % (33.0-51.0); Hemoglobin* 13.7 gm/dL (12.0-16.0); Immature Granulocytes Abs Auto 0.01 K/uL (0.00-0.30); Immature Granulocytes Pct Auto 0.1 %; Lymphocytes Absolute Auto 1.65 K/uL (0.90-2.90); Mean Corpuscular HGB Conc 32 gm/dL (32-36); Mean Corpuscular Hemoglobin 29 pg (26-34); Mean Corpuscular Volume 88 fL (80-100); RDW Coefficient of Variation % 13.2 % (11.5-15.5); Red Blood Count* 4.80 m/uL (4.00-5.20); White Blood Count* 7.87 K/uL (4.50-11.00)
[2025-02-20 04:51] LABS: Slide Review Reflex No
[2025-02-20 05:02] LABS: Albumin* 4.2 g/dL (3.3-5.0); Chloride* 104 mmol/L (96-114); Potassium* 4.2 mmol/L (3.6-5.1); Sodium* 140 mmol/L (135-149)
[2025-02-20 05:05] LABS: Alanine Aminotransferase* 21 U/L (4-35); Alkaline Phosphatase* 73 U/L (40-150); Anion Gap 8 mEq/L (7-15); Aspartate Amino Transferase* 29 U/L (12-35); Bilirubin Total* 0.5 mg/dL (0.1-1.5); Blood Urea Nitrogen* 24 mg/dL (5-24); Carbon Dioxide* 28 mmol/L (20-32); Creatinine* 1.1 mg/dL (0.5-1.5); Est. Creatinine Clearance* 60.16; Estimated Glomerular Filt Rate 62 ml/min; Total Protein* 7.5 g/dL (6.0-8.3)
[2025-02-20 05:06] LABS: Calcium* 9.6 mg/dL (8.4-10.6); Glucose* 116 mg/dL (60-115)
[2025-02-20] MEDS: ACETAMINOPHEN 500 MG TABLET 1000 MG PO (05:25)
[2025-02-20] MEDS: ONDANSETRON 2 MG/ML inj 4 MG IVP (05:25)
[2025-02-20 06:34] LABS: Appearance Urine Slightly Cloudy (Clear)
[2025-02-20 07:02] VITALS: BP 124/76; PULSE 74; RESP 16; TEMP 37.2; O2SAT 98
== END 2025-02-20 07:41 | disposition home or self-care (01) ==
PROVIDERS: Emergency Provider Emergency Medicine; PCP Family Medicine
DX: N20.0 Calculus of kidney (principal)
CPT/HCPCS: 36415; 80053; 81001; 85025; 87086; 96374; 99283; 99284; 99285; A9270; J2405